=== PATIENT | male | born 1970 | race Caucasian/White ===

== ENCOUNTER 2021-03-15 19:52 | Emergency (ER) | payer BC ==
[2021-03-15] MEDS ORDERED: Bacitracin Oint 1 GM U/D Packet TOP ONE (19:58)
[2021-03-15] MEDS ORDERED: Diphtheria,Pertussis(Acell),Tetanus Vaccine 0.5 ML Syringe IM ONE (20:19)
--- NOTE | 2021-03-15 20:24 | EDM.PDOC ---
ED HPI GENERAL MEDICAL PROBLEM - General Chief Complaint: Skin Complaint Stated Complaint: FISHHOOK IN HAND Time Seen by Provider: 03/15/21 20:05 Source of Information: Reports: Patient History Limitations: Reports: No Limitations - History of Present Illness INITIAL COMMENTS - FREE TEXT/NARRATIVE: 50-year-old male with a fishhook embedded into the left hand, thenar area of the palm. It is been there for about an hour. No other complaints or injury. He is due for a tetanus vaccination. Onset: Sudden Duration: Hour(s): (1 hour ago) Location: Reports: Upper Extremity, Left Associated Symptoms: Reports: No Other Symptoms Left Hand Pain Score (Numeric/FACES): 4 - Related Data Allergies Allergy/AdvReac Type Severity Reaction Status Date / Time Penicillins Allergy Rash Verified 03/15/21 20:25 Home Meds: Home Meds . [Unable to Verify Home Med List] 03/15/21 [History] ED ROS GENERAL - Review of Systems Review Of Systems: See Below Respiratory: Reports: No Symptoms Cardiovascular: Reports: No Symptoms GI/Abdominal: Reports: No Symptoms Skin: Reports: Other (See HPI) Neurological: Reports: No Symptoms ED EXAM, SKIN/RASH Exam: See Below Exam Limited By: No Limitations General Appearance: Alert, No Apparent Distress Head: Atraumatic Respiratory/Chest: No Respiratory Distress Extremities: Other (Exam is otherwise limited to the left hand. Patient has 1 gabriel of a treble hook embedded into the thenar area of the palm) Neurological: Alert, Oriented Psychiatric: Normal Affect, Normal Mood Course - Vital Signs Last Recorded V/S: Last Vital Signs Temp 97.8 F 03/15/21 20:28 Pulse 72 03/15/21 20:28 Resp 16 03/15/21 20:28 BP 152/96 H 03/15/21 20:28 Pulse Ox 98 03/15/21 20:28 - Orders/Labs/Meds Meds: Medications Discontinued Medications Generic Name Dose Route Start Last Admin Trade Name Freq PRN Reason Stop Dose Admin Bacitracin 1 dose 03/15/21 19:58 03/15/21 20:30 Bacitracin Oint 1 Gm U/D Packet TOP 03/15/21 19:59 1 dose ONETIME ONE Administration Diphtheria/Tetanus/Acell Pertussis 0.5 ml 03/15/21 20:19 03/15/21 20:30 Diphtheria,Pertussis(Acell),Tetanus Vaccine 0.5 Ml Syringe IM 03/15/21 20:20 0.5 ml .ONCE ONE Administration Lidocaine HCl 5 ml 03/15/21 19:58 03/15/21 20:30 Lidocaine 1% 5 Ml Sdv INJECT 03/15/21 19:59 5 ml ONETIME ONE Administration - Re-Assessments/Exams Free Text/Narrative Re-Assessment/Exam: 03/15/21 20:22 The area was sterilized with alcohol, infiltrated with a small amount of 1% lidocaine, and the patient was removed with countertraction with a needle stacy. The area was then cleaned a second time with alcohol, a small amount of bacitracin and a Band-Aid applied. He was given a Tdap booster. He will keep the area clean while healing, and return if concerns of infection or not healing satisfactorily. Departure - Departure Time of Disposition: 20:37 Disposition: Home, Self-Care 01 Clinical Impression: Foreign body of left hand Qualifiers: Encounter type: initial encounter Qualified Code(s): S60.552A - Superficial foreign body of left hand, initial encounter - Discharge Information Instructions: Puncture Wound, [id number] Referrals: PCP,None [Primary Care Provider] - Forms: ED Department Discharge Care Plan Goals: Keep wound covered and clean while healing. Activity as tolerated. Recheck if concerns of infection or not healing satisfactorily. Sepsis Event Note (ED) - Focused Exam Vital Signs: Vital Signs Temp Pulse Resp BP Pulse Ox 03/15/21 20:28 97.8 F 72 16 152/96 H 98 03/15/21 20:09 97.8 F 72 16 152/96 H 98
== END 2021-03-15 20:37 | disposition home or self-care (01) ==
LOC: JP.ED 19:52
DX: S60.552A Superficial foreign body of left hand, initial encounter (principal); Z88.0 Allergy status to penicillin; Z23 Encounter for immunization; W45.8XXA Other foreign body or object entering through skin, initial encounter
CPT/HCPCS: 90471; 90715; 99283